=== PATIENT | male | born 1985 | race Caucasian/White ===

== ENCOUNTER 2016-06-17 16:51 | Emergency (ER) | payer MEDICAID ==
[2016-06-17 17:18] VITALS: BP 120/85
--- NOTE | 2016-06-17 17:51 | ERNOTE ---
Lower Extremity HPI - Narrative Date of Service: 06/17/16 - General Lower Extremities Pain: foot: left Time Seen by Provider: 06/17/16 17:33 Source: patient, family, RN notes reviewed Exam Limitations: no limitations - Immun/Allergies/Home Medications Immunizations: IMMUNIZATION HX Immunizations Up to Date Yes History of Influenza Vaccine Yes Hx Pneumococcal Vaccination No Allergies/Adverse Reactions: Allergies Allergy/AdvReac Type Severity Reaction Status Date / Time No Known Allergies Allergy Verified 06/17/16 17:19 Home Medications: HOME MEDICATIONS Levetiracetam [Keppra] 1,500 mg PO BID 10/07/12 [Last Taken Unknown] DULoxetine HCL [Cymbalta] 20 mg PO DAILY 08/13/13 [Last Taken Unknown] HYDROcodone/ACETAMINOPHEN [[place] 5-325] 1 - 2 tab PO Q6H PRN #16 tab 06/17/16 [ Last Taken Unknown] Omeprazole 40 mg PO DAILY 06/17/16 [Last Taken Unknown] Trazodone HCl [Oleptro ER] 100 mg PO HS 06/17/16 [Last Taken Unknown] - History of Present Illness Narrative: 31 y/o male to ED in wheelchair, accompanied by his mother, for left foot pain. He struck the foot on an unknown object earlier today while having a seizure. He has seizures almost daily and is seen at [facility] for this. Occurred: this afternoon Location of Incident: home Method of Injury: Reports: direct blow Associated Symptoms: Reports: unable to bear weight Other Injuries: Reports: none Review of Systems - Review of Systems Constitutional: Present: no symptoms reported EYE: Present: no symptoms reported ENT: Present: no symptoms reported Respiratory: Present: no symptoms reported Cardiology: Present: no symptoms reported Gastrointestinal/Abdominal: Present: no symptoms reported Genitourinary: Present: no symptoms reported Musculoskeletal: Absent: joint pain, joint swelling Skin: Absent: lesions, lumps, change in color Neurological: Present: seizure. Absent: headache, weakness, numbness Endocrine: Present: no symptoms reported Hematologic/Lymphatic: Present: no symptoms reported Psych: Present: no symptoms reported - Patient's Past Medical History Patient History - Medical: Seizures Patient History - Cardiac/Respiratory: No pertinent hx Patient History - Cancer: No Hx of Cancer Patient History - Surgical Procedures: No surgical history - Social History Living Situations: home Smoking Status: Light tobacco smoker Have you smoked in the past 12 months: No Alcohol Use: none Drug Use: none Physical Exam - Physical Exam General Appearance: Present: alert, no apparent distress, thin Respiratory: Present: no respiratory distress, no accessory muscle use Cardiovascular/Chest: Present: normal peripheral pulses Peripheral Pulses: N=norm/S=strong/W=weak/B=bound/A=absent: Dorsalis-pedis (L): Strong Extremity Exam: Present: no edema, normal range of motion, other - tenderness and mild ecchymosis to dorsum of left foot. Absent: joint swelling, extremity edema Neurological Exam: Present: alert, oriented, normal mood/affect, no motor/ sensory deficits Skin Exam: Present: warm/dry, pallor ED Progress - Vital Signs Patient's Vital Signs:: I have reviewed the patient's vital signs. Vital Signs: Vital Signs 06/17/16 17:14 Temperature 36.8 C Pulse Rate 97 Respiratory 16 Rate Blood Pressure 120/85 O2 Sat by Pulse 96 Oximetry - X-Ray X-Ray #1 X-Ray: foot - Left Interpretation: Interp. by me X-ray Comments: No acute osseous abnormality noted - Progress/Reassessment Chief Complaint: Foot Injury/Pain Progress:: Unchanged Departure Clinical Impression: Seizure disorder Contusion of foot, left Qualifiers: Encounter type: initial encounter Qualified Code(s): S90.32XA - Contusion of left foot, initial encounter - Departure Disposition: Home self-care Condition: Good Instructions: Contusion, [id number] Additional Instructions: Ice and elevate foot Weight bearing as tolerated Continue your routine medications Ibuprofen for mild pain, [place] for more severe pain Prescriptions: HYDROcodone/ACETAMINOPHEN [[place] 5-325] 1 - 2 tab PO Q6H PRN #16 tab PRN Reason: Pain
[2016-06-17] MEDS ORDERED: HYDROcodone/ACETAMINOPHEN 1 EACH TABLET PO ONE (18:07)
[2016-06-17] MEDS ORDERED: HYDROcodone/ACETAMINOPHEN 1 EACH TABLET ONE (18:08)
== END 2016-06-17 18:15 | disposition home or self-care (01) ==
LOC: ER 16:51
DX: S90.32XA Contusion of left foot, initial encounter (principal); G40.909 Epilepsy, unspecified, not intractable, without status epilepticus; W22.8XXA Striking against or struck by other objects, initial encounter; Y92.009 Unspecified place in unspecified non-institutional (private) residence as the place of occurrence of the external cause